=== PATIENT | male | born 1965 | race Caucasian/White ===

== ENCOUNTER 2016-12-06 10:45 | Emergency (ER) | payer MEDICAID, OTHER ==
[2016-12-06 11:23] VITALS: BP 114/83
--- NOTE | 2016-12-06 11:29 | UC ---
Hand/Wrist HPI - HPI Summary HPI Summary: right wrist pain x 6 days , fell on his right wrist, no swelling, + pain with moving his right wrist - History Of Current Complaint Chief Complaint: UCUpperExtremity Stated Complaint: RIGHT WRIST INJURY Time Seen by Provider: 12/06/16 11:24 Hx Obtained From: Patient Onset/Duration: Sudden Onset, Lasting Days - 6, Still Present Severity Initially: Moderate Severity Currently: Moderate Character Of Pain: Aching Aggravating Factor(s): Movement, Lifting, Flexion, Extension Alleviating: Nothing Associated Signs And Symptoms: Negative: Swelling, Redness, Bruising, Fever, Weakness, Numbness/Tingling - Allergies/Home Medications Allergies/Adverse Reactions: Allergies Allergy/AdvReac Type Severity Reaction Status Date / Time No Known Allergies Allergy Verified 12/06/16 11:23 Home Medications: Home Medications Omeprazole CAP* [Prilosec CAP* 20 MG] 20 mg PO BID 12/06/16 [History Confirmed 12/06/16] oxyCODONE/Acetamin 10/325(NF) [Percocet 10/325 (NF)] 1 tab PO QID 12/06/16 [ History Confirmed 12/06/16] PMH/Surg Hx/FS Hx/Imm Hx Endocrine History Of: Denies: Diabetes, Thyroid Disease Cardiovascular History Of: Denies: Cardiac Disorders, Hypertension, Pacemaker/ICD Respiratory History Of: Denies: COPD, Asthma GI/ History Of: Denies: Gastroesophageal Reflux, Renal Disease Neurological History Of: Denies: CVA, Dementia, Seizures Other History Of: Negative For: Anticoagulant Therapy - Surgical History Surgical History: Yes Surgery Procedure, Year, and Place: LEFT HAND/FINGER. NOSE AT AGE 18. SALIVARY GLAND SURGERY 2011 - Family History Known Family History: Negative: Diabetes - Social History Alcohol Use: Occasionally Substance Use Type: None Smoking Status (MU): Heavy Every Day Tobacco Smoker Type: Cigarettes Amount Used/How Often: 1 ppd Length of Time of Smoking/Using Tobacco: since age 17 Have You Smoked in the Last Year: Yes Review of Systems Constitutional: Negative Skin: Negative Eyes: Negative ENT: Negative Respiratory: Negative Musculoskeletal: Other: - right wrist pain All Other Systems Reviewed And Are Negative: Yes Physical Exam Triage Information Reviewed: Yes Appearance: Well-Appearing, No Pain Distress, Well-Nourished Vital Signs: Initial Vital Signs Temp 98.3 F 12/06/16 11:15 Pulse 66 12/06/16 11:15 Resp 16 12/06/16 11:15 BP 114/83 12/06/16 11:15 Pulse Ox 100 12/06/16 11:15 Vital Signs Reviewed: Yes Eye Exam: Normal Eyes: Positive: Conjunctiva Clear ENT: Positive: Normal ENT inspection, Hearing grossly normal, Pharynx normal Neck: Positive: Supple, Nontender, No Lymphadenopathy Respiratory: Positive: Chest non-tender, Lungs clear, Normal breath sounds Cardiovascular: Positive: RRR, No Murmur, Pulses Normal Musculoskeletal: Positive: Other: - right wrist : no swelling, + tenderness radial wrist, good ROM on flexionand extension , normal strength Hand/Wrist Course/Dx - Differential Dx/Diagnosis Provider Diagnoses: sprain right wrist Discharge - Discharge Plan Condition: Stable Disposition: HOME Patient Education Materials: Wrist Sprain (ED) Referrals: Mary Holm MD [Primary Care Provider] - If Needed
== END 2016-12-06 11:35 | disposition home or self-care (01) ==
LOC: UCCORT 10:45
DX: S63.501A Unspecified sprain of right wrist, initial encounter (principal); W19.XXXA Unspecified fall, initial encounter; Y93.9 Activity, unspecified; Y92.9 Unspecified place or not applicable; F17.210 Nicotine dependence, cigarettes, uncomplicated
CPT/HCPCS: 99212; G0463

== ENCOUNTER 2018-05-02 13:16 | Emergency (ER) | payer MEDICAID, OTHER ==
--- OUTSIDE RECORDS SUMMARY | 2018-05-02 13:26 | XMS REPORT ---
:1965 External Reference #:[id number] Author Organization [facility] Address [address] [place] [address] Phone [phone] Care Team Providers Name Role Phone HCP given Primary Care Physician Unavailable Payers Type Date Identification Numbers Payment Provider Subscriber Commercial Effective: Policy Number: [id number] Keegan Paige Corbin [employer] Larry 2017 Mullen PayID: [id number] [address] [place] [id number] Problems Date Description Provider Status Onset: 04/02/2018 Tobacco user Francisca Baires PA Active Onset: 04/02/2018 Gastroesophageal reflux disease Francisca Baires PA Active Onset: 04/02/2018 Long-term current use of opiate analgesic Francisca Baires PA Active drug Onset: 04/02/2018 Chronic pain syndrome Francisca Baires PA Active Family History Date Family Member(s) Problem(s) Comments General Alcoholism many family members Father Stroke : (age 45 Father due to Stroke from head trauma Years) Mother Heart Problems : (age 63 Mother due to Heart Years) Problems Mother High Blood Pressure Mother due to COPD () Mother Diabetes, Nos Mother due to Emphysema () Mother Obesity Mother Chronic Obstructive Pulmonary Disease (COPD) Children 4 2 daughters and 2 sons Siblings 2 1 brother (living) and 1 sister () First Brother Asthma : (age 23 First Sister due to MVA Years) Uncle Cancer Social History Type Date Description Comments Education Highest level completed, 9th grade Marital Status 2 Times Smoke-Free Home is not smoke-free Smoke-Free 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 Working Hand Dominance Right-handed Abuse No history of abuse Cigarette Use current cigarette smoker Cigarette Use currently smokes 1/2 Pack Daily ETOH Use Rarely consumes alcohol Smoking 04/21/2018 Patient is a current 1/2 ppd (04/21/18), cut smoker, smokes every day down from 1 ppd Recreational Drug Use Cannabis Stopped 20 years ago Daily Caffeine Consumes on average 5 sodas per day Daily Caffeine Consumes on average 5 cups of coffee per day Enjoy Exercising Enjoys exercising Exercise Type/Frequency Exercises regularly Sun Exposure Does not use sunscreen Seat Belt/Car Seat always uses seat belt Guns in Home Yes, Locked Up Smoke Alarms Yes smoke alarm Currently Active Patient is currently sexually active Contraceptive Methods 1991 Vasectomy Age 1st [place] 17 Years Old # Partners in a Lifetime over 10 STD's No STD History Additional Info Sexual preference is women Allergies, Adverse Reactions, Alerts Date Description Reaction Status Severity Comments 04/29/2017 Fentanyl nightmares, itching active Moderate 04/29/2017 Morphine Sulfate Urticaria active Moderate Medications Medication Date Status Form Strength Qnty SIG Indications Ordering Provider Oxycodone HCL Active Tablets 15mg 150tabs 1 tab by Z79.899 Silcoff, 018 mouth Rahat, every 4-6 M.D. hours as needed for severe pain, maximum daily dose 5 tabs G89.4 Nicotine 08/10/2017 Active Patches 21mg/24HR 28units 1 patch Silcoff, 24HR applied to Rahat, upper arm M.D. every day x 4 weeks Ondansetron 05/28/2017 Active Tablets 4mg 90tabs 1-2 tabs by K21. Silcoff, Dispers mouth every 9 Rahat, 8 hours as M.D. needed for nausea (start with 1) R11.[address] 40mg 30caps 1 by K21.9 Silcoff , mouth Rahat, every day M.D. Diclofenac 07/12/2017 - Hx Gel 1% 100gm apply 2 g G89.4 Silcoff, Sodium 04/20/2018 gel for Rahat, hand and M.D. elbow pain 3-4 4 times daily (maximum: 8 g per joint per day) for pain Oxycodone-Oliverio 05/29/2017 - Hx Tablets 10-325m 180tabs 1-2 tabs Z79.899 Silcoff, taminophen 04/21/2018 g by mouth Rahat, every 4-6 M.D. hours as needed for pain, mdd 6 (replace prior Rx) G89.4 Oxycodone HCL 05/28/2017 - Hx Tablets 10mg 180tabs 1 q4 G89.4 Silcoff, 05/29/2017 hours, prn Rachel Giang for pain Oxycodone-Acet - Hx Tablets 10-325mg 180tabs 1 by mouth Z79.899 Silcoff, aminophen 05/28/2017 every 4 Rachel Giang hours for pain G89.4 Immunizations CPT Code Status Date Vaccine Lot # [id number] Given 12/05/2017 Shingrix Zoster (Shingles) Vaccine (HZV) [id number] Recomb,Subnit,Adjuvanted [id number] Given 05/28/2017 Influenza Virus Vaccine, Quadrivalent, Split, [id number] Preservative Free Vital Signs Date Vital Result Comment 04/21/2018 BP Systolic 100 mmHg BP Diastolic 70 mmHg Weight 112.50 lb 04/02/2018 BP Systolic 120 mmHg BP Diastolic 62 mmHg Weight 114.00 lb with sneakers 02/26/2018 BP Systolic 124 mmHg BP Diastolic 68 mmHg Height 65.5 inches 5'5.50" Weight 120.00 lb BMI (Body Mass Index) 19.7 kg/m2 12/05/2017 BP Systolic 100 mmHg BP Diastolic 76 mmHg Weight 123.00 lb 07/12/2017 BP Systolic 126 mmHg BP Diastolic 84 mmHg Height 65.50 inches 5'5.50" Weight 126.00 lb BMI (Body Mass Index) 20.6 kg/m2 05/28/2017 BP Systolic 125 mmHg BP Diastolic 82 mmHg Weight 126.00 lb with shoes 05/12/2017 BP Systolic 122 mmHg BP Diastolic 80 mmHg Weight 119.00 lb 04/29/2017 BP Systolic 92 mmHg BP Diastolic 64 mmHg Height 65.5 inches 5'5.50" Weight 122.00 lb BMI (Body Mass Index) 20.0 kg/m2 Results Test Date Test Result H/L Range Note Urine Drug Screen Inhouse 04/21/2018 Ua Cocaine - Ua Opiates - Ua Amphetamines - Urine Methanphetamines - Urine Benzodiazepines QN [place] - Urine Oxycodone QL + Urine Drug Screen Inhouse 07/12/2017 Ua Cocaine - 1 Ua Opiates - 1 Ua Amphetamines - 1 Urine Methanphetamines - 1 Urine Benzodiazepines QN [place] - 1 Urine Oxycodone QL + 1 Urine Drug Screen Inhouse 05/28/2017 Ua Cocaine - Ua Opiates + Ua Amphetamines - Urine Methanphetamines - Urine Benzodiazepines QN [place] - Urine Oxycodone QL + 1 DL aware and sample was not sent out. Procedures Description No Information Encounters Type Date Location Provider CPT E/M Dx Office Visit 04/21/2018 1:30p [place] [address] G89.4 Z79.891 K21.9 R11.0 F17.210 Office Visit 04/02/2018 2:35p [place] [address] G89.4 Z79.891 K21.9 F17.210 Office Visit 02/26/2018 11:20a Main Office Garth LeAAnand [address]334 G89.4 Z79.891 Office Visit 12/05/2017 9:30a Main Office Rahat Thacker M.D. 33365 G89.4 Z79.891 K21.9 R11.0 Z23 Z41.8 Office Visit 07/12/2017 9:00a Main Office Garth LeAAnand [address]0597 G89.4 Z79.899 Z00.01 Z11.59 R03.0 Z79.891 Z71.89 Office Visit 05/28/2017 4:00p Main Office Garth LeA. [address]9600 Z79.899 G89.4 K21.9 Z12.11 R11.0 Z23 Z41.8 Z13.220 Office Visit 05/12/2017 3:00p Main Office Ivory Le.A. 42008 Z79.899 G89.4 R51 Office Visit 04/29/2017 3:00p Main Office Garth LeA. 68024 Z79.899 G89.4 Z79.891 Plan of Care Future Appointment(s):05/08/2018 4:00 pm - Nurse's Schedule at [facility]21 - Francisca Baires PAG89.4 Chronic pain syndromeNew Medication:Oxycodone HCL 15 mgComments:Chronic pain in left hand/elbow and right knee secondary to trauma. Pain has been controlled on oxycodone/APAP 10/325mg at 7 tabs/day. With new regulations, max allowable is 6 tabs/day. Pt has had issues getting prescriptions because of this. Will switch to oxycodone 15mg (may need prior auth) at 5 tabs/day (similar to current total daily dose), with tylenol separate. 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 Discussed staying hydrated, slowly advancing back to normal diet. Recheck if sx not improving.F17.210 Nicotine dependence, cigarettes, uncomplicatedComments:Patient cutting down on smoking, now at 1/2 ppd. Smoking cessation counseling <10 minutes done today. He will continue nicotine patches and f/u in 1-2 months.
--- NOTE | 2018-05-02 14:31 | RAD ---
INDICATION: Cough productive, weight loss, fatigue. Vomiting. COMPARISON: No relevant prior exams available [place] [facility] [place]. TECHNIQUE: Dual energy PA and routine lateral views of the chest were obtained. REPORT: Elevated lung volumes and minimal prominence of the interstitial markings. No focal pulmonary lesion, compelling alveolar consolidation, pleural effusion, pneumothorax. The heart, pulmonary vasculature, and mediastinal contours are unremarkable. Unremarkable soft tissue contours and osseous structures. IMPRESSION: #. Stigmata of obstructive lung disease. No acute pulmonary or cardiac process evident.
[2018-05-02] MEDS ORDERED: NS 0.9% 1000 ML* 1,000 ML IV SCH ×2 (14:45)
--- NOTE | 2018-05-02 16:10 | UC ---
Dizzy HPI HPI Summary: patient unable to keep anything down for the last two weeks, multiple episodes of vomiting, stools normal, no black stools, in addition last two days has had cough , no further vomiting, cough has persisted as has his weakness with this has had dizzyness on standing - History Of Current Complaint Chief Complaint: UCRespiratory Stated Complaint: FATIGUE, COUGH Time Seen by Provider: 05/02/18 13:45 Hx Obtained From: Patient Onset/Duration: Gradual Onset, Lasting Weeks Timing: Constant Severity Initially: Moderate Pain Intensity: 0 Character: Head Spinning, Lightheaded Aggravating Factor(s): Position Change Alleviating Factor(s): Lying Down Associated Signs And Symptoms: Positive: Decreased Oral Intake - Allergies/Home Medications Allergies/Adverse Reactions: Allergies Allergy/AdvReac Type Severity Reaction Status Date / Time No Known Allergies Allergy Verified 05/02/18 13:47 Home Medications: Home Medications Oxycodone HCl [Roxicodone] 15 mg PO QID PRN 05/02/18 [History Confirmed 05/02/18 ] PMH/Surg Hx/FS Hx/Imm Hx Previously Healthy: No Respiratory History: COPD Other History Of: Negative For: Anticoagulant Therapy - Surgical History Surgical History: Yes Surgery Procedure, Year, and Place: LEFT HAND/FINGER. NOSE AT AGE 18. SALIVARY GLAND SURGERY 2012 - Family History Known Family History: Negative: Diabetes - Social History Alcohol Use: Rare Substance Use Type: None Smoking Status (MU): Heavy Every Day Tobacco Smoker Type: Cigarettes Amount Used/How Often: 1 ppd Length of Time of Smoking/Using Tobacco: since age 17 Have You Smoked in the Last Year: Yes Review of Systems Constitutional: Fatigue Skin: Negative Eyes: Negative ENT: Negative Respiratory: Shortness Of Breath, Cough Cardiovascular: Negative Gastrointestinal: Vomiting Genitourinary: Negative Motor: Negative Neurovascular: Negative Musculoskeletal: Negative Is Patient Immunocompromised?: No All Other Systems Reviewed And Are Negative: Yes Physical Exam - Summary Physical Exam Summary: cachectic appearing man in mild distress Triage Information Reviewed: Yes Appearance: Ill-Appearing, Cachectic Vital Signs: Initial Vital Signs Temp 37.2 C 05/02/18 13:39 Pulse 64 05/02/18 13:39 Resp 20 05/02/18 13:39 BP 112/75 05/02/18 13:39 Pulse Ox 100 05/02/18 13:39 Vital Signs Reviewed: Yes Eye Exam: Normal Eyes: Positive: Conjunctiva Clear ENT Exam: Normal ENT: Positive: Normal ENT inspection Neck exam: Normal Neck: Positive: Supple Respiratory: Positive: Other: - distant breath sounds, no wheezing or ronchi Cardiovascular Exam: Normal Cardiovascular: Positive: RRR Abdomen Description: Positive: Nontender Bowel Sounds: Positive: Present Male Genital Exam: Positive: Other - rectal exam without masses, guiac negative Dizzy Course/Dx - Differential Dx/Diagnosis Provider Diagnoses: orthostatic hypotension. copd. recurrent vomiting. severe weight loss Discharge - Sign-Out/Discharge Documenting (check all that apply): Patient Departure All imaging exams completed and their final reports reviewed: Yes - Discharge Plan Condition: Fair Disposition: HOME Prescriptions: Albuterol Sulfate [Proventil Hfa] 180 mcg IN QID PRN #1 aer PRN Reason: Cough Patient Education Materials: COPD (Chronic Obstructive Pulmonary Disease) (ED) , Dehydration (ED) Referrals: Viry BARBOUR,Francisca Carlos [Primary Care Provider] - Additional Instructions: will need GI evaluation for determining nature of his recurrent vomiting - Billing Disposition and Condition Condition: FAIR Disposition: Home
[2018-05-02 16:29] VITALS: BP 116/87
[2018-05-03 14:15] LABS: ABS Basophils 0.1 10^3/ul (0-0.2); ABS Eosinophils 0.3 10^3/ul (0-0.6); ABS Lymphocytes 1.9 10^3/ul (1.0-4.8); ABS Monocytes 0.8 10^3/ul (0-0.8); ABS Nucleated RBC 0 10^3/ul; Eosinophil % 3.8 % (0-6); Hematocrit 41 % (42-52); Hemoglobin 13.8 g/dl (14.0-18.0); Lymphocyte % 26.9 % (25-47); Mean Corpuscular HGB Conc 34 g/dl (31-36); Mean Corpuscular Hemoglobin 30 pg (27-31); Mean Corpuscular Volume 90 fL (80-94); Nucleated Red Blood Cells % 0.6; Red Blood Count 4.55 10^6/ul (4.00-5.40); Red Cell Distribution Width 13 % (10.5-15); White Blood Count 7.1 10^3/ul (3.5-10.8)
[2018-05-03 14:17] LABS: EGFR Non-African American 96.7 (>60)
[2018-05-03 15:25] LABS: Mean Platelet Volume 8.2 um3 (7.4-10.4)
[2018-05-03 15:26] LABS: Platelet Count Platelets clumped. 10^3/ul (150-450)
== END 2018-05-02 16:28 | disposition home or self-care (01) ==
LOC: UCCORT 13:17
DX: I95.1 Orthostatic hypotension (principal); J44.9 Chronic obstructive pulmonary disease, unspecified; R11.10 Vomiting, unspecified; R63.4 Abnormal weight loss; F17.210 Nicotine dependence, cigarettes, uncomplicated
CPT/HCPCS: 36415; 71046; 80053; 82270; 85025; 96360; 99212; G0463

== ENCOUNTER 2018-10-04 16:14 | Emergency (ER) | payer SELFPAY ==
[2018-10-04 16:38] VITALS: BP 116/63
--- NOTE | 2018-10-04 17:18 | UC ---
Throat Pain/Nasal Guero HPI - HPI Summary HPI Summary: 53 yo male presents with left neck swelling and FB sensation in throat. He tells me that about 2 hours ago he took excedrin with water for a mild headache and he feels that the excedrin got stuck in his throat. He tried drinking water , milk, and eating crackers and bread with no relief of the pill sensation in his throat. Over the course of the 2 hours has noticed swelling to the left side of his neck. He has no trouble breathing and does not feel that his throat is closing. He smokes heavily daily. - History of Current Complaint Chief Complaint: UCForeignBody Stated Complaint: THROAT COMPLAINT Time Seen by Provider: 10/04/18 17:18 Hx Obtained From: Patient Onset/Duration: Sudden Onset Severity: Moderate Pain Intensity: 7 Pain Scale Used: 0-10 Numeric - Allergies/Home Medications Allergies/Adverse Reactions: Allergies Allergy/AdvReac Type Severity Reaction Status Date / Time No Known Allergies Allergy Verified 10/04/18 16:38 PMH/Surg Hx/FS Hx/Imm Hx - Additional Past Medical History Additional PMH: Chronic pain GI/ History: Gastroesophageal Reflux Other History Of: Negative For: Anticoagulant Therapy - Surgical History Surgical History: Yes Surgery Procedure, Year, and Place: LEFT HAND/FINGER. NOSE AT AGE 18. SALIVARY GLAND SURGERY 2011 - Family History Known Family History: Negative: Diabetes - Social History Lives: With Family Alcohol Use: Rare Substance Use Type: None Smoking Status (MU): Heavy Every Day Tobacco Smoker Type: Cigarettes Amount Used/How Often: 1 ppd Length of Time of Smoking/Using Tobacco: since age 17 Have You Smoked in the Last Year: Yes Review of Systems All Other Systems Reviewed And Are Negative: Yes Constitutional: Positive: Negative Skin: Positive: Negative ENT: Positive: Sore Throat Respiratory: Positive: Negative Cardiovascular: Positive: Negative Neurovascular: Positive: Negative Neurological: Positive: Negative Psychological: Positive: Negative Physical Exam - Summary Physical Exam Summary: GENERAL: NAD. WDWN. No pain distress. SKIN: No rashes, sores, lesions, or open wounds. HEENT: Head: AT/NC Throat: Posterior oropharynx without exudates, erythema, or tonsillar enlargement. Uvula midline. NECK: Left anterior neck with 2.5cm ?mass. NTTP. Immobile. CHEST: CTAB. No r/r/w. No accessory muscle use. Breathing comfortably and in no distress. CV: RRR. Without m/r/g. Pulses intact. Cap refill <2seconds NEURO: Alert. PSYCH: Age appropriate behavior. Triage Information Reviewed: Yes Vital Signs: Initial Vital Signs Temp 98.7 F 10/04/18 16:33 Pulse 61 10/04/18 16:33 Resp 16 10/04/18 16:33 BP 116/63 10/04/18 16:33 Pulse Ox 98 10/04/18 16:33 Vital Signs Reviewed: Yes Throat Pain/Nasal Course/Dx - Course Course Of Treatment: Pt says that the neck findings on his exam today were not present before taking the excedrin that he thinks is stuck in his throat. He is currently breathing well and tolerating po well. I am unsure the cause of his neck mass on exam today, but have recommended he be further evaluated in the ED regarding this for potential CT/US and further eval regarding possible excedrin within his esophagus. Pt declined ambulance and will drive him. - Differential Dx/Diagnosis Provider Diagnosis: Neck mass Discharge - Sign-Out/Discharge Documenting (check all that apply): Patient Departure All imaging exams completed and their final reports reviewed: No Studies - Discharge Plan Condition: Stable Disposition: HOME-RECOMMEND TO ED Referrals: Viry BARBOUR,Francisca Carlos [Primary Care Provider] - Additional Instructions: Please go to the ER for further evaluation of your neck mass - Billing Disposition and Condition Condition: STABLE Disposition: Home-Recommend to ED - Attestation Statements Provider Attestation: I was available for consult. This patient was seen by the [facility]. The patient was not presented to, seen by, or examined by me. -Ana Lilia
== END 2018-10-04 17:30 | disposition home health service (06) ==
LOC: UCEAST 16:14
DX: R22.1 Localized swelling, mass and lump, neck (principal); F17.210 Nicotine dependence, cigarettes, uncomplicated
CPT/HCPCS: 99212; G0463